=== PATIENT | male | born 1965 | race Caucasian/White ===

== ENCOUNTER 2019-10-22 08:12 | Emergency (ER) | payer OTHER ==
--- NOTE | 2019-10-22 08:44 | ER ---
Nurse's Notes [facility] Name: Deondre Acosta Age: 54 yrs Sex: Male : 1965 Arrival Date: 10/22/2019 Time: 08:13 Bed 17 Private MD: Emerson Beavers Diagnosis: Dental caries;Periapical abscess without sinus Presentation: 10/21 08:39 Chief complaint: Patient states: pain to left upper jaw/tooth X 1 week. Coronavirus iw screen: Proceed with normal triage. Patient denies a cough. Patient denies shortness of breath or difficulty breathing. Patient denies measured and/or subjective temperature greater than 100.4F prior to today's visit. Patient denies travel on a cruise ship or to a country the [facility] currently lists as an affected area. Patient denies contact with known and/or suspected case of COVID-19. Ebola Screen: Patient negative for fever greater than or equal to 101.5 degrees Fahrenheit, and additional compatible Ebola Virus Disease symptoms Patient denies exposure to infectious person. Patient denies travel to an Ebola-affected area in the 21 days before illness onset. No symptoms or risks identified at this time. Initial Sepsis Screen: Does the patient meet any 2 criteria? No. Patient's initial sepsis screen is negative. Does the patient have a suspected source of infection? No. Patient's initial sepsis screen is negative. Risk Assessment: Do you want to hurt yourself or someone else? Patient reports no desire to harm self or others. Onset of symptoms was October 15, 2019. 08:39 Method Of Arrival: Ambulatory iw 08:39 Acuity: CLEO 5 iw Historical: - Allergies: 08:41 Iodine; iw - PMHx: 08:41 Depression; Hypertension; PTSD; iw - PSHx: 08:41 back surgery; shoulder - right; iw - Immunization history:: Adult Immunizations unknown. - Family history:: not pertinent. - Social history:: Smoking status: unknown. - Hospitalizations: : No recent hospitalization is reported. Screenin:45 Abuse screen: Denies threats or abuse. Denies injuries from another. Nutritional iw screening: No deficits noted. Tuberculosis screening: No symptoms or risk factors identified. Fall Risk None identified. Assessment: 08:45 General: Appears in no apparent distress. comfortable, Behavior is calm, cooperative. iw Pain: Complains of pain in left cheek and left jaw. Neuro: Level of Consciousness is awake, alert, obeys commands, Oriented to person, place, time, situation, Moves all extremities. Full function. Cardiovascular: Patient's skin is warm and dry. Respiratory: Reports Airway is patent Respiratory effort is even, unlabored. GI: No signs and/or symptoms were reported involving the gastrointestinal system. EENT: Derm: Skin is intact, is healthy with good turgor. Musculoskeletal: Range of motion: intact in all extremities. Vital Signs: 08:39 BP 159 / 83; Pulse 63; Resp 16; Temp 97.4; Pulse Ox 98% on R/A; Pain 8/10; iw ED Course: 08:13 Patient arrived in ED. as 08:13 Emerson Beavers MD is Private Physician. as 08:26 Jeffery Patel MD is Attending Physician. rn 08:39 Jeanine More RN is Primary Nurse. iw 08:41 Triage completed. iw 08:45 Patient has correct armband on for positive identification. iw 08:45 Arm band placed on. iw 08:45 No provider procedures requiring assistance completed. Patient did not have IV access iw during this emergency room visit. Administered Medications: No medications were administered Outcome: 08:43 Discharge ordered by . rn 08:50 Discharged to home ambulatory. iw 08:50 Condition: good 08:50 Discharge instructions given to patient, Instructed on discharge instructions, follow up and referral plans. medication usage, Demonstrated understanding of instructions, follow-up care, medications, Prescriptions given X 2. 08:50 Patient left the ED. iw Signatures: Maryjo Jimenez as Jeanine More, MAGDI RN iw Jeffery Patel MD MD learning specialist: (The following items were deleted from the chart) 08:45 08:39 Pulse 63bpm; Resp 16bpm; Pulse Ox 98% RA; Temp 97.4F; Pain 8/10; iw iw
--- NOTE | 2019-10-22 08:44 | EDPHYS ---
Physician Documentation [facility] Name: Deondre Acosta Age: 54 yrs Sex: Male : 1965 Arrival Date: 10/22/2019 Time: 08:13 Bed 17 Private MD: Emerson Beavers ED Physician Jeffery Patel HPI: 10/21 08:37 This 54 yrs old Male presents to ER via Unassigned with complaints of rn Toothache. 08:37 The patient presents with pain. The problem is located in the left upper posterior rn molar. 08:38 Duration: The symptoms are continuous. Modifying factors: The symptoms are alleviated rn by nothing, the symptoms are aggravated by chewing, food. Associated signs and symptoms: Pertinent negatives: fever, inability to eat. Severity of symptoms: At their worst the symptoms were moderate, in the emergency department the symptoms are unchanged. The patient has experienced a previous episode. Reports dealing with toothache/infected tooth, worse recently, no fever, hurts to talk and chew. No trauma. . Historical: - Allergies: 08:41 Iodine; iw - PMHx: 08:41 Depression; Hypertension; PTSD; iw - PSHx: 08:41 back surgery; shoulder - right; iw - Immunization history:: Adult Immunizations unknown. - Family history:: not pertinent. - Social history:: Smoking status: unknown. - Hospitalizations: : No recent hospitalization is reported. ROS: 08:38 Constitutional: Negative for fever, chills, and weight loss, ENT: + dental pain rn Exam: 08:38 Constitutional: This is a well developed, well nourished patient who is awake, alert, rn holding left side of face ENT: + poor dentition with local tenderness left upper posterior molar, no fluctuance or abscess seen along gum, no buccal cellulitis or abscess. Vital Signs: 08:39 BP 159 / 83; Pulse 63; Resp 16; Temp 97.4; Pulse Ox 98% on R/A; Pain 8/10; iw MDM: 08:26 Patient medically screened. rn 08:38 Differential diagnosis: dental caries, dental abscess. Differential diagnosis: rn gingivitis. Data reviewed: vital signs, nurses notes. Data reviewed: and as a result, I will discharge patient. Counseling: I had a detailed discussion with the patient and/or guardian regarding: the historical points, exam findings, and any diagnostic results supporting the discharge/admit diagnosis, the need for outpatient follow up, to return to the emergency department if symptoms worsen or persist or if there are any questions or concerns that arise at home. Special discussion: I discussed with the patient/guardian in detail that at this point there is no indication for admission to the hospital. It is understood, however, that if the symptoms persist or worsen the patient needs to return immediately for re-evaluation. Based on the history and exam findings, there is no indication for further emergent testing or inpatient evaluation. I discussed with the patient/guardian the need to see a dentist for further evaluation of the symptoms. 08:42 ED course: [place] checked, scores 030/010/000/110, no active prescriptions for rn narcotics, will dc home with tramadol and abx.. Administered Medications: No medications were administered Disposition: 10/22/19 08:43 Discharged to Home. Impression: Dental caries, Periapical abscess without sinus. - Condition is Stable. - Discharge Instructions: Dental Abscess, Dental Pain. - Prescriptions for Clindamycin HCl 300 mg Oral Capsule - take 1 capsule by ORAL route every 6 hours for 10 days; 40 capsule. Tramadol 50 mg Oral Tablet - take 1 tablet by ORAL route every 8 hours as needed; 15 tablet. - Medication Reconciliation Form, Thank You Letter, Antibiotic Education, Prescription Opioid Use form. - Follow up: Private Physician; When: As needed; Reason: Recheck today's complaints, Re-evaluation by your physician. - Problem is new. - Symptoms are unchanged. Signatures: Jeanine More RN RN iw Jeffery Patel MD MD sports internship: (The following items were deleted from the chart) 08:50 08:43 10/22/2019 08:43 Discharged to Home. Impression: Dental caries; Periapical iw abscess without sinus. Condition is Stable. Forms are Medication Reconciliation Form, Thank You Letter, Antibiotic Education, Prescription Opioid Use. Follow up: Private Physician; When: As needed; Reason: Recheck today's complaints, Re-evaluation by your physician. Problem is new. Symptoms are unchanged. rn
[2019-10-22 08:56] VITALS: BP 159/83; TEMP 97.4; O2SAT 98
--- OUTSIDE RECORDS SUMMARY | 2019-10-22 09:22 | XMS REPORT ---
:1965 Author Organization [facility] t Address [address] [place] [address] Care Team Providers Name Role Phone Unavailable Unavailable Unavailable Payers Payer Name Policy Type Policy Number Effective Date Expiration D ate Problems This patient has no known problems. Allergies, Adverse Reactions, Alerts This patient has no known allergies or adverse reactions. Medications This patient has no known medications. Results Test Description Test Time Test Comments Text Results Atomic Results Result Comments - CT ORBIT/SELLA/IAC WO 2019-01-26 14:39:00 [place] ent Name: LINCOLN GONZALEZ Unit No: [id number] EXAMS: CPT CODE: [id number] CT ORBIT/SELLA/[place] [address] CT temporal bones without contrast 01/26/2019 2:37 PM CLINICAL INDICATION: Otalgia COMPARISON: None availa ble LOCATION: W1 TECHNIQUE: Axial noncontrast CT images of the temporal bones were obtained, from which three-dimensional reconstruc ir[place]a images were created. T his examination was performed ac cording to our departmental do se optimization program, which includes automated exposure control, adjustment of the mA and/or kV according to patient size, a nd/or use of iterative reconstru ction technique. FIN DINGS: The internal and external auditory canals are normal. The inner ear structures are unremarkable. There is no en larged endolymphatic sac anom moe. The ossicles have a normal relat ionship to each other and to t he oval windows. There is no dehisce nce of bone over the superior semicircular canals. There i s no soft tissue in the middle ear amie fts or the mastoid air cells. Th e jugular bulbs and remainder of the s kull base are unremarkable. IMPRESSION: Unremarkable noncontrast exa mination. Electr onically Signed by JORGE A Silveira on 07/2018 at 1439 Reported and signed by: UNIQUE BLOOM M.D. CC: Sofya Reyes MD Techno logist: Jere Sherman; Jacquelyn Aparicio CT DI: 32.03 DLP: 543 Trscr Dt/Tm: 0 01/26/2019 (8503) by:[email or web address] Printed Date/Time: (9077) Name: LINCOLN GONZALEZ [facility] Phys: PURVI - Park Reyes MD [address] : 1965 Age: 53 Sex: [place] [address] Loc: P .CTS Exam Date: 01/26/2019 Status : REG CLI PH: FAX: PAGE 1 Signed Report
== END 2019-10-22 08:50 | disposition home or self-care (01) ==
LOC: ER 08:12
DX: K04.7 Periapical abscess without sinus (principal); I10 Essential (primary) hypertension; Z88.8 Allergy status to other drugs, medicaments and biological substances
CPT/HCPCS: 99282

== ENCOUNTER 2021-12-17 08:54 | Emergency (ER) | payer OTHER ==
--- OUTSIDE RECORDS SUMMARY | 2021-12-17 08:56 | XMS REPORT | Continuity of Care Document ---
:1965 Author Organization [facility] t Address [address] [place] [address] Care Team Providers Name Role Phone Nuha Pace Attending Clinician Unavailable Payers Payer Name Policy Type Policy Number Effective Date Expiration Date S ource Problems This patient has no known problems. Allergies, Adverse Reactions, Alerts This patient has no known allergies or adverse reactions. Medications This patient has no known medications. Procedures This patient has no known procedures. Encounters Start End Encounter Admission Attending Care Care Encounter Source Date/Time Date/Time Type Type Clinicians Facility Department ID 2021-07-22 [facility] [id number] Common 12:17:12 [facility]ly [facility] [id number] [facility] 2021-07-22 [facility] [id number] Common 12:17:08 Jacek [id number] [facility] 2021-07-22 [facility] [id number] Common 12:16:02 Jacek [id number] [facility] 2021-07-22 Outpatient Pace, [facility] [id number] Common 12:14:10 Jacek [id number] [facility] 2021-07-22 [facility], [facility] [id number] Common 12:13:37 Jacek [id number] [facility] 2021-07-22 Outpatient Pace, [facility] [id number] Common 12:13:19 [facility] [id number] [facility] 2020-06-09 2020-06-09 Outpatient [facility] [id number] Common 00:00:00 00:00:00 [facility] Results Test Description Test Time Test Comments Results Result Sourc e Comments - CT 2019-01-26 Patient Name: ORBIT/SELLA/IAC WO 14:39:00 LINCOLN GONZALEZ Unit No: [id number] EXAMS: CPT CODE: [id number] CT ORBIT/SELLA/[place] [address] CT temporal bones without contrast 01/26/2019 2:37 PM CLINICAL INDICATION: Otalgia COMPARISON: None available LOCATION: W1 TECHNIQUE: Axial noncontrast CT images of the temporal bones were obtained, from which three-dimensional reconstructed images were created. This examination was performed according to our departmental dose optimization program, which includes automated exposure control, adjustment of the mA and/or kV according to patient size, and/or use of iterative reconstruction technique. FINDINGS: The internal and external auditory canals are normal. The inner ear structures are unremarkable. There is no enlarged endolymphatic sac anomaly. The ossicles have a normal relationship to each other and to the oval windows. There is no dehiscence of bone over the superior semicircular canals. There is no soft tissue in the middle ear clefts or the mastoid air cells. The jugular bulbs and remainder of the skull base are unremarkable. IMPRESSION: Unremarkable noncontrast examination. at 1436 Reported and signed by: JORGE A BLOOM M.D. CC: Sofya Reyes MD Technologist: Jere Aparicio CTDI: 32.03 DLP: 543 Trscr Dt/Tm: 01/26/2019 (9607) by:[email or web address] Printed Date/Time: 01/26/2019 (5176) Name: LINCOLN GONZALEZ [facility] Phys: Sofya Chavez MD [address] : 1965 Age: 53 Sex: [place] [address] Loc: P.CTS Exam Date: 01/26/2019 Status: REG CLI PH: FAX: PAGE 1 Signed Report
[2021-12-17] MEDS ORDERED: AMOX/K CLAV 875 MG TAB ONE (09:28)
[2021-12-17] MEDS ORDERED: HYDROCODONE/APAP 10/325 TAB ONE (09:28)
[2021-12-17] MEDS ORDERED: IBUPROFEN 400 MG TAB ONE (09:29)
--- NOTE | 2021-12-17 09:37 | EDPHYS ---
Physician Documentation [facility] Name: Deondre Acosta Age: 56 yrs Sex: Male : 1965 Arrival Date: 12/17/2021 Time: 08:56 Bed 17 Private MD: Sanjeev [facility] ED Physician Jomar Thomas HPI: 12/17 09:20 This 56 yrs old Male presents to ER via Ambulatory with complaints of Toothache. cp 09:20 The patient presents with broken tooth/teeth, pain. The problem is located in the left cp upper jaw. Onset: The symptoms/episode began/occurred for past several months. Duration: The symptoms are continuous, and are markedly worse than the original presentation. Associated signs and symptoms: Pertinent negatives: anorexia, dysphagia, fever, inability to eat, swelling, vomiting. Severity of symptoms: in the emergency department the symptoms are unchanged, despite home interventions. Historical: - Allergies: 09:09 Iodine; ld1 - Home Meds: 09:09 None [Active]; ld1 - PMHx: 09:09 Depression; Hypertension; PTSD; ld1 - PSHx: 09:09 None; ld1 - Immunization history:: Adult Immunizations up to date, Client reports having NOT received the Covid vaccine. - Social history:: Smoking status: Patient denies any tobacco usage or history of. Patient/guardian denies using alcohol. ROS: 09:25 Constitutional: Negative for body aches, chills, fever, poor PO intake. cp 09:25 ENT: Positive for dental pain, Negative for drainage from ear(s), ear pain, sore cp throat, difficulty swallowing, difficulty handling secretions. 09:25 Respiratory: Negative for cough, shortness of breath, wheezing. 09:25 Abdomen/GI: Negative for abdominal pain, nausea, vomiting, and diarrhea. 09:25 Neuro: Negative for headache, weakness. 09:25 All other systems are negative. Exam: 09:30 Constitutional: The patient appears in no acute distress, alert, awake, non-toxic, well cp developed, well nourished, uncomfortable. 09:30 Head/Face: Normocephalic, atraumatic. cp 09:30 ENT: External ear(s): are unremarkable, Ear canal(s): are normal, clear, TM's: are normal, no dullness, Nose: is normal, Mouth: Lips: moist, Oral mucosa: pink and intact, moist, Gums: normal with healthy appearance, Tongue: is normal, abscess, is not appreciated, Posterior pharynx: Airway: no evidence of obstruction, patent, Tonsils: are normal in appearance, Uvula: midline, Dental exam: abscess, is not appreciated, dental caries, that is moderate, diffusely, fractured teeth are noted, specifically the upper left third molar (#16), gum swelling, not appreciated, pain, that is moderate, specifically in the upper left third molar (#16), Voice: is normal. 09:30 Neck: ROM/movement: is normal, is supple, without pain, no range of motions limitations, Lymph nodes: no appreciated lymphadenopathy. 09:30 Chest/axilla: Inspection: normal. 09:30 Cardiovascular: Rate: normal. 09:30 Respiratory: the patient does not display signs of respiratory distress, Respirations: normal, no use of accessory muscles, no retractions, labored breathing, is not present. 09:30 Skin: cellulitis, is not appreciated, no rash present. Vital Signs: 09:06 BP 165 / 89; Pulse 96; Resp 18; Temp 98.7(TE); Pulse Ox 97% on R/A; Weight 170.1 kg; ld1 Height 6 ft. 5 in. (195.58 cm); Pain 10/10; 09:41 BP 155 / 86; Pulse 91; Resp 18; Pulse Ox 98% on R/A; Pain 4/10; ld1 09:06 Body Mass Index 44.47 (170.10 kg, 195.58 cm) ld1 MDM: 09:04 Patient medically screened. cp 09:30 Differential diagnosis: dental caries, dental abscess, pericoronitis. cp 09:37 Data reviewed: vital signs, nurses notes. cp 09:37 Counseling: I had a detailed discussion with the patient and/or guardian regarding: the cp historical points, exam findings, and any diagnostic results supporting the discharge/admit diagnosis, the need for outpatient follow up, for definitive care, a dentist, maxillary/facial surgeon, to return to the emergency department if symptoms worsen or persist or if there are any questions or concerns that arise at home. Response to treatment: the patient's symptoms have mildly improved after treatment, and as a result, I will discharge patient. Administered Medications: 09:29 Drug: HYDROcodone-acetaminophen 10 mg-325 mg 1 tabs Route: PO; ld1 09:29 Drug: Ibuprofen 800 mg Route: PO; ld1 09:29 Drug: Augmentin (Amoxicillin-Clavulanate) 875 mg Route: PO; ld1 Disposition Summary: 12/17/21 09:37 Discharge Ordered Location: Home cp Problem: new cp Symptoms: have improved cp Condition: Stable cp Diagnosis - Disorder of teeth and supporting structures, unspecified cp Followup: cp - With: Ronald Cruz DDS - When: 2 - 3 days - Reason: Recheck today's complaints Discharge Instructions: - Discharge Summary Sheet cp - Dental Pain cp Forms: - Medication Reconciliation Form cp - Thank You Letter cp - Antibiotic Education cp - Prescription Opioid Use cp Prescriptions: - Amoxicillin 875 mg Oral Tablet - take 1 tablet by ORAL route every 12 hours for 10 days; 20 tablet; Refills: 0, cp Product Selection Permitted - Ibuprofen 800 mg Oral Tablet - take 1 tablet by ORAL route every 8 hours As needed take with food; 30 tablet; cp Refills: 0, Product Selection Permitted - Tramadol 50 mg Oral Tablet - take 1 tablet by ORAL route every 8 hours as needed; 12 tablet; Refills: 0, cp Product Selection Permitted Signatures: Antonio Zepeda PA PA cp Toyin Noble, RN RN ld1
--- NOTE | 2021-12-17 09:37 | ER ---
Nurse's Notes [facility] Name: Deondre Acosta Age: 56 yrs Sex: Male : 1965 Arrival Date: 12/17/2021 Time: 08:56 Bed 17 Private MD: Jacek Pace Diagnosis: Disorder of teeth and supporting structures, unspecified Presentation: 12/17 09:06 Chief complaint: Patient states: Left sided mouth/tooth pain - pt reports "I tried to ld1 pull my tooth out with pliers.". Coronavirus screen: At this time, the client does not indicate any symptoms associated with coronavirus-19. Ebola Screen: No symptoms or risks identified at this time. Initial Sepsis Screen: Does the patient meet any 2 criteria? No. Patient's initial sepsis screen is negative. Does the patient have a suspected source of infection? No. Patient's initial sepsis screen is negative. Risk Assessment: Do you want to hurt yourself or someone else? Patient reports no desire to harm self or others. Onset of symptoms was December 17, 2021. 09:06 Method Of Arrival: Ambulatory ld1 09:06 Acuity: CLEO 4 ld1 Triage Assessment: 09:09 General: Appears in no apparent distress. comfortable, Behavior is calm, cooperative, ld1 appropriate for age. Pain: Complains of pain in left buccal mucosa Pain does not radiate. Pain currently is 10 out of 10 on a pain scale. EENT: Reports pain in left buccal mucosa. Neuro: Level of Consciousness is awake, alert, obeys commands, Oriented to person, place, time, situation, Appropriate for age. Cardiovascular: Capillary refill < 3 seconds Patient's skin is warm and dry. Respiratory: Airway is patent Respiratory effort is even, unlabored. GI: Abdomen is round non-distended. :. Derm: No signs and/or symptoms reported regarding the dermatologic system. Musculoskeletal: No signs and/or symptoms reported regarding the musculoskeletal system. Historical: - Allergies: 09:09 Iodine; ld1 - Home Meds: 09:09 None [Active]; ld1 - PMHx: 09:09 Depression; Hypertension; PTSD; ld1 - PSHx: 09:09 None; ld1 - Immunization history:: Adult Immunizations up to date, Client reports having NOT received the Covid vaccine. - Social history:: Smoking status: Patient denies any tobacco usage or history of. Patient/guardian denies using alcohol. Screenin:11 Abuse screen: Denies threats or abuse. Denies injuries from another. Nutritional ld1 screening: No deficits noted. Tuberculosis screening: No symptoms or risk factors identified. Fall Risk None identified. Assessment: 09:11 Reassessment: See triage assessment. ld1 Vital Signs: 09:06 BP 165 / 89; Pulse 96; Resp 18; Temp 98.7(TE); Pulse Ox 97% on R/A; Weight 170.1 kg; ld1 Height 6 ft. 5 in. (195.58 cm); Pain 10/10; 09:41 BP 155 / 86; Pulse 91; Resp 18; Pulse Ox 98% on R/A; Pain 4/10; ld1 09:06 Body Mass Index 44.47 (170.10 kg, 195.58 cm) ld1 ED Course: 08:56 Patient arrived in ED. rg4 08:56 Jacek Pace DO is Private Physician. rg4 09:00 Antonio Zepeda PA is PHCP. cp 09:00 Jomar Thomas MD is Attending Physician. cp 09:01 Toyin Noble, MAGDI is Primary Nurse. ld1 09:09 Triage completed. ld1 09:09 Arm band placed on right wrist. ld1 09:11 Patient has correct armband on for positive identification. Placed in gown. Bed in low ld1 position. Call light in reach. Side rails up X2. Pulse ox on. NIBP on. Door closed. Noise minimized. 09:11 No provider procedures requiring assistance completed. ld1 09:37 Ronald Cruz DDS is Referral Physician. cp 09:41 Patient did not have IV access during this emergency room visit. ld1 Administered Medications: 09:29 Drug: HYDROcodone-acetaminophen 10 mg-325 mg 1 tabs Route: PO; ld1 09:29 Drug: Ibuprofen 800 mg Route: PO; ld1 09:29 Drug: Augmentin (Amoxicillin-Clavulanate) 875 mg Route: PO; ld1 Medication: 09:11 VIS not applicable for this client. ld1 Outcome: 09:37 Discharge ordered by . cp 09:42 Discharged to home ambulatory. ld1 09:42 Condition: stable 09:42 Discharge instructions given to patient, Instructed on discharge instructions, follow up and referral plans. medication usage, Demonstrated understanding of instructions, follow-up care, medications, Prescriptions given X 3. 09:42 Patient left the ED. ld1 Signatures: Antonio Zepeda PA PA cp Garcia, Rubi rg4 Toyin Noble, RN RN ld1
[2021-12-17 09:51] VITALS: TEMP 98.7
[2021-12-17 09:53] VITALS: BP 155/86; O2SAT 98
== END 2021-12-17 09:42 | disposition home or self-care (01) ==
LOC: ER 08:54
DX: K08.89 Other specified disorders of teeth and supporting structures (principal); I10 Essential (primary) hypertension; Z91.048 Other nonmedicinal substance allergy status
CPT/HCPCS: 99283

== ENCOUNTER 2022-01-23 22:58 | Emergency (ER) | payer OTHER ==
[2022-01-24] MEDS ORDERED: ACETAMINOPHEN 500 MG TAB ONE (01:12)
[2022-01-24] MEDS ORDERED: ONDANSETRON 4 MG/2 ML VIAL ONE (01:13)
[2022-01-24] MEDS ORDERED: MORPHINE 4 MG/ML SYR ONE ×2 (01:13→07:27)
[2022-01-24] MEDS ORDERED: FAMOTIDINE 20 MG/2 ML VIAL IV ONE (01:13)
[2022-01-24 01:33] LABS: Absolute Lymphocytes (CBC) 1.8 K/uL (0.7-4.9); Lymphocytes % 27.5 % (15.3-44.8); MCV 98.9 fL (80-100); MPV 8.8 fL (7.6-11.3)
[2022-01-24 01:36] LABS: Hematocrit 18.8 % (39.6-49.0)
--- NOTE | 2022-01-24 01:45 | ER ---
Nurse's Notes [facility] Name: Deondre Acosta Age: 56 yrs Sex: Male : 1965 Arrival Date: 01/23/2022 Time: 23:01 Bed 8 Private MD: Diagnosis: Melena;Other specified anemias;GI Bleed/ Gastrointestinal hemorrhage, unspecified Presentation: 01/23 23:05 Chief complaint: Black stools x 1 week. Also c/o generalized weakness, headache and hb malaise. Coronavirus screen: Client presents with at least one sign or symptom that may indicate coronavirus-19. Standard/surgical mask placed on the client. Provider contacted for isolation considerations. Ebola Screen: No symptoms or risks identified at this time. Initial Sepsis Screen: Does the patient meet any 2 criteria? No. Patient's initial sepsis screen is negative. Does the patient have a suspected source of infection? No. Patient's initial sepsis screen is negative. Risk Assessment: Do you want to hurt yourself or someone else? Patient reports no desire to harm self or others. Onset of symptoms was January 06, 2022. 23:05 Method Of Arrival: Wheelchair hb 23:05 Acuity: CLEO 3 hb Historical: - Allergies: 23:07 Iodine; hb - PMHx: 23:07 Depression; Hypertension; PTSD; hb 01/24 05:05 Diabetes mellitus; lp1 - Immunization history:: Adult Immunizations up to date. - Social history:: Smoking status: Patient denies any tobacco usage or history of. Screenin:29 Abuse screen: Denies threats or abuse. Denies injuries from another. Nutritional lp1 screening: No deficits noted. Tuberculosis screening: No symptoms or risk factors identified. Fall Risk None identified. Assessment: 01:15 General: Appears in no apparent distress. Behavior is calm, cooperative, appropriate lp1 for age. Pain: Complains of pain in abdomen Pain currently is 8 out of 10 on a pain scale. Neuro: Level of Consciousness is awake, alert, obeys commands, Oriented to person, place, time, situation, Reports dizziness, upon standing. Cardiovascular: Patient's skin is warm and dry. Respiratory: Respiratory effort is even, unlabored. GI: Abdomen is non-distended, Reports Black stool x 5 days. : No signs and/or symptoms were reported regarding the genitourinary system. EENT: No signs and/or symptoms were reported regarding the EENT system. Derm: Skin is intact, Skin is dry, Skin is pale. Musculoskeletal: No deficits noted. 04:15 Reassessment: Patient aware of pending transfer after start of blood transfusion lp1 Patient denies pain at this time. 04:45 Reassessment: 1st unit of PRBC began at this time. lp1 05:32 Reassessment: Nurse to Nurse report given to MAGDI Cadena for patient transfer to [address] room 1562. 06:15 Reassessment: Patient appears in no apparent distress at this time. complaint of 1 headache Patient states feeling better. 07:16 Reassessment: EMS at bedside for patient transfer to [facility]. lp1 Vital Signs: 01/23 23:05 BP 124 / 64; Pulse 88; Resp 20; Temp 97.8; Pulse Ox 100% on R/A; Weight 163.29 kg; hb Height 6 ft. 5 in. (195.58 cm); Pain 8/10; 01/24 01:29 BP 119 / 67; Pulse 76; Resp 18; Pulse Ox 99% on R/A; lp1 04:15 BP 124 / 57; Pulse 66; Resp 18; Pulse Ox 98% on R/A; lp1 04:45 lp1 06:15 BP 111 / 50; Pulse 68; Resp 18; Temp 98.1(TE); Pulse Ox 99% on R/A; lp1 06:40 BP 111 / 51; Pulse 67; Resp 18; Pulse Ox 99% on R/A; lp1 01/23 23:05 Body Mass Index 42.69 (163.29 kg, 195.58 cm) hb 04:45 See Transfusion flowsheet for further vitals lp1 06:15 Completion of 1st unit of PRBC lp1 ED Course: 01/23 23:01 Patient arrived in ED. tw5 23:07 Triage completed. hb 23:07 Arm band placed on. hb 01/24 00:03 Jomar Thomas MD is Attending Physician. kdr 00:36 CT Abd/Pelvis - Without Contrast In Process Unspecified. EDMS 01:01 Pauline Momin RN is Primary Nurse. lp1 01:18 Inserted saline lock: 18 gauge in right antecubital area, using aseptic technique. lp1 Blood collected. 01:30 Patient has correct armband on for positive identification. Bed in low position. Call lp1 light in reach. 04:15 Consent for blood and/or blood product transfusion explained by staff, explained by lp1 physician, signed by patient. 04:16 No provider procedures requiring assistance completed. lp1 07:16 Patient transferred, IV remains in place. lp1 Administered Medications: 01:28 Drug: Pepcid (famotidine) 20 mg Route: IVP; Site: right antecubital; lp1 04:16 Follow up: Response: No adverse reaction lp1 01:28 Drug: Tylenol 1000 mg Route: PO; lp1 04:16 Follow up: Response: No adverse reaction lp1 01:28 Drug: morphine 4 mg Route: IVP; Infused Over: 4 mins; Site: right antecubital; lp1 04:16 Follow up: Response: Pain is decreased lp1 01:28 Drug: Zofran (Ondansetron) 4 mg Route: IVP; Site: right antecubital; lp1 04:16 Follow up: Response: No adverse reaction lp1 07:22 Drug: morphine 4 mg Route: IVP; Infused Over: 4 mins; Site: right antecubital; 6 Medication: 01:30 VIS not applicable for this client. lp1 Intake: 06:28 IV: 256ml (Blood Products); Total: 256ml. lp1 Outcome: 01:44 ER care complete, transfer ordered by . kdr 04:16 Condition: stable lp1 04:16 Instructed on the need for transfer. 07:25 Patient left the ED. eb Signatures: Dispatcher [employer] EDMS Jomar Tohmas MD MD [facility] Pauline Momin, RN RN lp1 Sary Be RN RN Lila Trejo Tiffany 5 Destinee Rodriguez RN RN [id number]
--- NOTE | 2022-01-24 01:45 | EDPHYS ---
Physician Documentation [facility] Name: Deondre Acosta Age: 56 yrs Sex: Male : 1965 Arrival Date: 01/23/2022 Time: 23:01 Bed 8 Private MD: ED Physician Jomar Thomas HPI: 01/24 04:18 This 56 yrs old Male presents to ER via Wheelchair with complaints of Bloody Stools. kdr 04:19 Ibuprofen all patient states he has been feeling generally poor for about a week. Is kdr also been very weak. Initially complains of a headache and generalized malaise. Onset: The symptoms/episode began/occurred gradually, 1 week(s) ago. Severity of symptoms: At their worst the symptoms were mild in the emergency department the symptoms are unchanged. The patient has not experienced similar symptoms in the past. The patient has not recently seen a physician. Historical: - Allergies: 01/23 23:07 Iodine; hb - PMHx: 23:07 Depression; Hypertension; PTSD; hb 01/24 05:05 Diabetes mellitus; lp1 - Immunization history:: Adult Immunizations up to date. - Social history:: Smoking status: Patient denies any tobacco usage or history of. ROS: 04:19 Constitutional: Negative for fever, chills, and weight loss, Eyes: Negative for injury, kdr pain, redness, and discharge, ENT: Negative for injury, pain, and discharge, Neck: Negative for injury, pain, and swelling, Cardiovascular: Negative for chest pain, palpitations, and edema, Respiratory: Negative for shortness of breath, cough, wheezing, and pleuritic chest pain, Back: Negative for injury and pain, : Negative for injury, bleeding, discharge, and swelling, MS/Extremity: Negative for injury and deformity, Skin: Negative for injury, rash, and discoloration, Neuro: Negative for headache, weakness, numbness, tingling, and seizure activity. Psych: Negative for depression, anxiety, suicide ideation, homicidal ideation, and hallucinations, Allergy/Immunology: Negative for hives, rash, and allergies, Endocrine: Negative for neck swelling, polydipsia, polyuria, polyphagia, and marked weight changes, Hematologic/Lymphatic: Negative for swollen nodes, abnormal bleeding, and unusual bruising. 04:19 Abdomen/GI: Positive for nausea, black/tarry stool. Exam: 04:19 Constitutional: This is a well developed, well nourished patient who is awake, alert, kdr and in no acute distress. Head/Face: Normocephalic, atraumatic. Eyes: Pupils equal round and reactive to light, extra-ocular motions intact. Lids and lashes normal. Conjunctiva and sclera are non-icteric and not injected. Cornea within normal limits. Periorbital areas with no swelling, redness, or edema. Neck: Trachea midline, no thyromegaly or masses palpated, and no cervical lymphadenopathy. Supple, full range of motion without nuchal rigidity, or vertebral point tenderness. No Meningismus. Chest/axilla: Normal chest wall appearance and motion. Nontender with no deformity. No lesions are appreciated. Cardiovascular: Regular rate and rhythm with a normal S1 and S2. No gallops, murmurs, or rubs. Normal PMI, no JVD. No pulse deficits. Respiratory: Lungs have equal breath sounds bilaterally, clear to auscultation and percussion. No rales, rhonchi or wheezes noted. No increased work of breathing, no retractions or nasal flaring. Back: No spinal tenderness. No costovertebral tenderness. Full range of motion. Skin: Warm, dry with normal turgor. Normal color with no rashes, no lesions, and no evidence of cellulitis. MS/ Extremity: Pulses equal, no cyanosis. Neurovascular intact. Full, normal range of motion. Neuro: Awake and alert, GCS 15, oriented to person, place, time, and situation. Cranial nerves II-XII grossly intact. Motor strength 5/5 in all extremities. Sensory grossly intact. Cerebellar exam normal. Normal gait. Psych: Awake, alert, with orientation to person, place and time. Behavior, mood, and affect are within normal limits. 04:19 Abdomen/GI: Inspection: obese Bowel sounds: active, diminished, in all quadrants, Palpation: soft, mild abdominal tenderness, in all quadrants, rebound tenderness, is not appreciated, Rectal exam: Prostate: normal, rectal tone normal, Stool: guaiac positive, green. Vital Signs: 01/23 23:05 BP 124 / 64; Pulse 88; Resp 20; Temp 97.8; Pulse Ox 100% on R/A; Weight 163.29 kg; hb Height 6 ft. 5 in. (195.58 cm); Pain 8/10; 01/24 01:29 BP 119 / 67; Pulse 76; Resp 18; Pulse Ox 99% on R/A; lp1 04:15 BP 124 / 57; Pulse 66; Resp 18; Pulse Ox 98% on R/A; lp1 04:45 lp1 06:15 BP 111 / 50; Pulse 68; Resp 18; Temp 98.1(TE); Pulse Ox 99% on R/A; lp1 06:40 BP 111 / 51; Pulse 67; Resp 18; Pulse Ox 99% on R/A; lp1 01/23 23:05 Body Mass Index 42.69 (163.29 kg, 195.58 cm) hb 04:45 See Transfusion flowsheet for further vitals lp1 06:15 Completion of 1st unit of PRBC lp1 MDM: 01:44 Patient medically screened. kdr 04:19 Data reviewed: vital signs, nurses notes, lab test result(s), radiologic studies. kdr Counseling: I had a detailed discussion with the patient and/or guardian regarding: the historical points, exam findings, and any diagnostic results supporting the discharge/admit diagnosis, lab results, radiology results, the need for outpatient follow up. 01/24 00:03 Order name: CBC with Diff; Complete Time: 02:14 kdr 01/24 00:03 Order name: CMP; Complete Time: 02:14 kdr 01/24 00:03 Order name: Lipase; Complete Time: 02:14 kdr 01/24 00:03 Order name: Type And Screen kdr 01/24 00:52 Order name: SARS RAPID; Complete Time: 02:14 ds4 01/24 00:09 Order name: CT Abd/Pelvis - Without Contrast kdr 01/24 02:40 Order name: Packed RBC Leukored EDMS 01/24 02:52 Order name: Lactate kdr 01/24 04:10 Order name: ABO/RH no charge EDMS 01/24 04:57 Order name: Urine Dipstick-Ancillary EDMS 01/24 00:03 Order name: IV Saline Lock; Complete Time: 01:28 kdr 01/24 00:03 Order name: Labs collected and sent; Complete Time: 01:28 kdr 01/24 00:03 Order name: Urine Dipstick-Ancillary (obtain specimen); Complete Time: 05:06 kdr Administered Medications: 01:28 Drug: Pepcid (famotidine) 20 mg Route: IVP; Site: right antecubital; lp1 04:16 Follow up: Response: No adverse reaction lp1 01:28 Drug: Tylenol 1000 mg Route: PO; lp1 04:16 Follow up: Response: No adverse reaction lp1 01:28 Drug: morphine 4 mg Route: IVP; Infused Over: 4 mins; Site: right antecubital; lp1 04:16 Follow up: Response: Pain is decreased lp1 01:28 Drug: Zofran (Ondansetron) 4 mg Route: IVP; Site: right antecubital; lp1 04:16 Follow up: Response: No adverse reaction lp1 07:22 Drug: morphine 4 mg Route: IVP; Infused Over: 4 mins; Site: right antecubital; jh6 Disposition Summary: 01/24/22 01:44 Transfer Ordered Transfer Location: [facility] kdr Reason: Higher level of care kdr Condition: Fair kdr Problem: new kdr Symptoms: have improved kdr Accepting Physician: AMY(01/24/22 07:25) sarina Diagnosis - Melena kdr - Other specified anemias kdr - GI Bleed/ Gastrointestinal hemorrhage, unspecified kdr Forms: - Medication Reconciliation Form kdr - SBAR form kdr Signatures: Dispatcher [employer] EDMS Jomar Thomas MD MD kdr Pauline Momin RN RN lp1 Sary Be, RN RN Lila Fernández Jennifer, RN RN jh6 Lindsey Chilel PA PA sb3 Corrections: (The following items were deleted from the chart) 02:59 01:03 Abdomen Pelvis Wo Con+CT.RAD.BRZ ordered. EDMS EDMS 07:25 01:44 [facility] kdr eb
[2022-01-24 01:51] LABS: Bilirubin Total 0.3 mg/dL (0.2-1.0); Potassium 3.8 mmol/L (3.5-5.1); Protein, Total 6.4 g/dL (6.4-8.2)
[2022-01-24 01:52] LABS: SARS-CoV-2 Antigen Rapid Res Negative (Negative)
[2022-01-24] MEDS ORDERED: NA CHLORIDE 0.9% 250 ML ONE (03:29)
[2022-01-24 04:57] LABS: Urine Blood Negative (Negative); Urine Glucose 2+ (Negative); Urine Protein Negative (Negative); Urine pH 5.5 (5.0-7.0)
[2022-01-24 08:33] VITALS: TEMP 98.1; O2SAT 99
[2022-01-24 08:38] VITALS: BP 111/51
--- NOTE | 2022-01-25 14:14 | RAD REPORT ---
EXAM DESCRIPTION: CT - Abdomen Pelvis Wo Contrast - 01/24/2022 6:49 am CLINICAL HISTORY: GI bleed TECHNIQUE: Axial computed tomography images of the abdomen and pelvis without intravenous contrast. Sagittal and coronal reformatted images were created and reviewed. This CT exam was performed usi ng one or more of the following dose reduction techniques: automated exposure control, adjustment o f the mA and/or kV according to patient size, and/or use of iterative reconstruction technique. COMPARISON: No relevant prior studies available. FINDINGS: Lung bases: Right lower lobe calcified granuloma. ABDOMEN: Liver: The liver is enlarged. Gallbladder and bile ducts: Mild circumferential gallbladder wall thickening. No calcified stones . No ductal dilation. Pancreas: Mild infiltrative changes in the peripancreatic fat. No ductal dilation. Spleen: The spleen is mildly enlarged. Adrenals: Unremarkable. No mass. Kidneys and ureters: 3 cm cyst at the mid pole of the left kidney. No follow-up imaging is necessar y. No calculi. No hydronephrosis. Stomach and bowel: The duodenal C-loop appears thickened. Surrounding infiltrative changes. No ob struction. PELVIS: Appendix: Normal caliber appendix. No findings to suggest acute appendicitis. Bladder: Unremarkable. No stones. Reproductive: Unremarkable as visualized. ABDOMEN and PELVIS: Intraperitoneal space: Small amount of free fluid in the abdomen and pelvis. No free air. Bones/joints: Multilevel spondylosis. No acute fracture. No dislocation. Soft tissues: Tiny fat-containing umbilical hernia. Small bilateral fat-containing inguinal hernias . Vasculature: Unremarkable. No abdominal aortic aneurysm. Lymph nodes: Unremarkable. No enlarged lymph nodes. IMPRESSION: 1. Findings which may be related to nonspecific duodenitis. Given proximity, suggest l aboratory correlation for acute pancreatitis. 2. There is nonspecific gallbladder wall thickening, a finding which can be seen in hepatic dysfunc tion, immunocompromise, hypoalbuminemia, acute or chronic cholecystitis among the diagnostic possibil ities. 3. Other findings as above. Electronically signed by: Blair Lazaro MD 01/24/2022 1:00 AM CDT Due to temporary technical issues with the PACS/Fluency reporting system, reports are being signed by the in house radiologists without review as a courtesy to insure prompt reporting. The interpreting radiologist is fully responsible for the content of the report.
== END 2022-01-24 07:25 | disposition short-term general hospital (02) ==
LOC: ER 22:58
PROC: 30233N1 Transfusion of Nonautologous Red Blood Cells into Peripheral Vein, Percutaneous Approach (ICD-10-PCS; principal; 2022-01-24)
DX: D64.89 Other specified anemias (principal); E11.9 Type 2 diabetes mellitus without complications; I10 Essential (primary) hypertension; Z91.048 Other nonmedicinal substance allergy status
CPT/HCPCS: 36415; 74176; 80053; 81003; 83605; 83690; 85025; 86850; 86900; 86901; 87811; 96374; 96375; 99284; J2405; J3490; J7050; P9016